=== PATIENT | male | born 1965 | race African-American/Black ===

== ENCOUNTER 2016-11-29 11:20 | Emergency (ER) | payer MEDICARE ==
--- NOTE | ~2016-11-29 | CT52 ---
[facility] A Service of [facility] RADIOLOGY TEXT RESULTS PATIENT: MILI SOLITARIO LOCATION: [facility] : 67 UNIT #: [id number] AGE: [address]: Yousuf Clinton MD SEX: M ORDER DR: [id number] [facility]. [place], [place] [address] [id number] MR#: [id number] Acc #: [id number] NAME: MILI SOLITARIO : 1965 SEX: M STUDY DATE/TIME: 11/29/2016 11:42 UNIT: [facility] ROOM: STUDY DESCRIPTION: CT Cervical Spine Wo Cont Attending Physician: Yousuf Clinton M.D. Ordering Physician: Yousuf Clinton M.D. Primary Care Physician: Dimitrios Cota M.D. MEDICAL IMAGING REPORT This report is preliminary unless electronic signature is present EXAM Cervical spine CT. INDICATION Acute left-sided neck pain with radiculopathy in the left arm. TECHNIQUE CT of the cervical spine without contrast. This CT exam was performed with one or more of the following radiation dose reduction techniques: automatic exposure control, adjustment of mA and/or kV according to patient size, and iterative reconstruction. COMPARISON None available. FINDINGS There is no acute fracture or subluxation of the cervical spine. Vertebral body height is normal. There is mild grade 1 retrolisthesis of C2 on C3 (2 mm). There is mild grade 1 anterolisthesis of C4 on C5 (3 mm). Multilevel degenerative changes are noted throughout the cervical spine. C2-3: There is a small broad-based disc osteophyte complex which indents the anterior thecal sac and results in a moderate central canal stenosis. There is severe neural foraminal stenosis. C3-4: There is a small broad-based disc osteophyte complex centrally. This results in a moderate central canal stenosis. There is severe bilateral neural foraminal stenosis. C4-5: Grade 1 anterolisthesis is noted. There is a small posterior disc osteophyte complex causing a mild central canal stenosis. There is [facility] A Service of [facility] RADIOLOGY TEXT RESULTS PATIENT: MILI SOLITARIO [id number] : 67 UNIT #: [id number] AGE: [address]: Yousuf Clinton MD SEX: M ORDER DR: moderate bilateral neural foraminal stenosis. C6-7: Broad-based disc osteophyte complex results in a moderate central canal stenosis. Facet arthropathy and uncovertebral hypertrophy results in severe bilateral neural foraminal stenosis. C6-7: There is posterior disc osteophyte complex causing moderate central canal stenosis. Facet arthropathy and intraoperatively contribute to moderate bilateral neural foraminal stenosis. Paravertebral soft tissues are within normal limits. IMPRESSION 1. No acute findings to account for the patient's symptoms. 2. Multilevel degenerative change throughout the cervical spine. Dictated by... Bubba Farias M.D. THIS IS AN ELECTRONICALLY VERIFIED REPORT Bubba Farias M.D. at 11/30/2016 2:12 PM RAFAEL/maritza TD: 11/29/2016 18:51 JOB #: [id number] MEDICAL IMAGING REPORT Page 1 of 1 COPY
[~2016-11-29 11:20] MED LIST: IBUPROFEN PO; KEFLEX PO
== END 2016-11-29 12:45 | disposition home or self-care (01) ==
LOC: CED 11:20
DX: M54.16 Radiculopathy, lumbar region (principal); G80.9 Cerebral palsy, unspecified
CPT/HCPCS: 72125; 82947; 99284